=== PATIENT | male | born 1940 | race Caucasian/White ===

== ENCOUNTER → 2017-12-04 09:25 | Outpatient (CLI) | payer BC ==
[2017-12-04 10:15] LABS: BASOPHILS 0.6 % (0-2); HEMOGLOBIN 12.9 g/dL (13.5-17.5); IMMATURE GRANULOCYTES 0.3 % (0-5); MCH 27.5 pg (26.0-34.0); MCHC 31.5 g/dL (31.0-37.0); MCV 87.4 fL (80.0-100.0); MONOCYTES 8.8 % (2-11); NEUTROPHILS 70.3 % (40-80); PLATELET COUNT 231 10x3/uL (130-400); RBC 4.69 10x6/uL (4.20-6.10); RDW 17.6 % (11.5-14.5); WBC 10.2 10x3/uL (4.8-10.8)
[2017-12-04 10:20] LABS: ALBUMIN 3.4 g/dL (3.4-5.0); ANION GAP 15.3 mmol/L (8-16); BILIRUBIN - TOTAL 1.09 mg/dL (0.2-1.3); CARBON DIOXIDE 22.9 mmol/L (21.0-32.0); CHOL - HDL RATIO 3.2 ratio (2.3-4.9); LDL-HDL RATIO 1.7 ratio (1.5-3.5); POTASSIUM - SERUM 5.2 mmol/L (3.5-5.1); PROTEIN - SERUM 8.8 g/dL (6.4-8.2); THYROID STIMULATING HORMONE 2.58 uIU/mL (0.36-3.74); URIC ACID 5.4 mg/dL (2.6-7.2)
[2017-12-05 07:35] LABS: FOLATE (FOLIC ACID) - SERUM >20.0 ng/mL (>3.0)
== END | disposition home or self-care (01) ==
LOC: D.LAB 09:25
PROVIDERS: Family Medicine
DX: F10.20 Alcohol dependence, uncomplicated (principal); I10 Essential (primary) hypertension; K74.60 Unspecified cirrhosis of liver; M10.9 Gout, unspecified

== ENCOUNTER → 2018-05-29 14:02 | Outpatient (CLI) | payer BC | END | disposition home or self-care (01) | LOC: D.MRI 14:02 | DX: M54.16 Radiculopathy, lumbar region (principal) ==

== ENCOUNTER → 2019-04-21 08:54 | Outpatient (CLI) | payer BC ==
[2019-04-21 09:48] LABS: HEMATOCRIT 38.6 % (42.0-54.0); HEMOGLOBIN 12.3 g/dL (13.5-17.5); LYMPHOCYTES 18.4 % (15-50); MCH 26.3 pg (26.0-34.0); MCHC 31.9 g/dL (31.0-37.0); MCV 82.7 fL (80.0-100.0); MEAN PLATELET VOLUME 11.2 fL (7.4-10.4); NEUTROPHILS 71.3 % (40-80); RBC 4.67 10x6/uL (4.20-6.10); RDW 18.9 % (11.5-14.5)
[2019-04-21 09:50] LABS: INR 1.21 (0.85-1.17); PROTIME 14.8 SECONDS (11.6-15.0)
[2019-04-21 09:52] LABS: ALBUMIN 3.8 g/dL (3.4-5.0); ANION GAP 13.5 mmol/L (8-16); BILIRUBIN - DIRECT 0.19 mg/dL (0.00-0.30); CALCIUM 9.4 mg/dL (8.5-10.1); CARBON DIOXIDE 25.1 mmol/L (21.0-32.0); CREATININE - SERUM 1.7 mg/dL (0.6-1.3); PLATELET COUNT 151 10x3/uL (130-400); POTASSIUM - SERUM 4.6 mmol/L (3.5-5.1); PROTEIN - SERUM 8.6 g/dL (6.4-8.2)
[2019-04-21 10:10] LABS: BILIRUBIN - INDIRECT 0.54 mg/dL (0.00-1.00); BILIRUBIN - TOTAL 0.73 mg/dL (0.2-1.3)
[2019-04-22 09:14] LABS: ALPHA FETOPROTEIN -(TUMOR MRK) 1.9 ng/mL (0.0-8.3)
[2019-04-22 11:14] LABS: HEPATITIS C ANTIBODY <0.1 S/CO RAT (0.0-0.9)
== END | disposition home or self-care (01) ==
LOC: D.LAB 08:45 → D.US 10:00
PROVIDERS: ATTEND Internal Medicine Gastroenterology
DX: K70.30 Alcoholic cirrhosis of liver without ascites (principal)

== ENCOUNTER → 2019-10-19 09:08 | Outpatient (CLI) | payer BC ==
[2019-10-19 09:47] LABS: BASOPHILS 0.3 % (0-2); EOSINOPHILS 1.5 % (0-7); HEMATOCRIT 35.6 % (42.0-54.0); HEMOGLOBIN 10.8 g/dL (13.5-17.5); IMMATURE GRANULOCYTES 0.2 % (0-5); LYMPHOCYTES 23.3 % (15-50); MCH 24.7 pg (26.0-34.0); MCHC 30.3 g/dL (31.0-37.0); MCV 81.3 fL (80.0-100.0); MEAN PLATELET VOLUME 10.3 fL (7.4-10.4); MONOCYTES 6.9 % (2-11); NEUTROPHILS 67.8 % (40-80); PLATELET COUNT 172 10x3/uL (130-400); RBC 4.38 10x6/uL (4.20-6.10); RDW 17.3 % (11.5-14.5); WBC 9.1 10x3/uL (4.8-10.8)
[2019-10-19 09:48] LABS: INR 1.2 (0.85-1.17); PROTIME 14.7 SECONDS (11.6-15.0)
[2019-10-19 09:52] LABS: ALBUMIN 3.4 g/dL (3.4-5.0); ANION GAP 12.5 mmol/L (8-16); BILIRUBIN - DIRECT 0.19 mg/dL (0.00-0.30); BILIRUBIN - INDIRECT 0.45 mg/dL (0.00-1.00); BILIRUBIN - TOTAL 0.64 mg/dL (0.2-1.3); CALCIUM 8.8 mg/dL (8.5-10.1); CARBON DIOXIDE 23.9 mmol/L (21.0-32.0); CREATININE - SERUM 1.6 mg/dL (0.6-1.3); POTASSIUM - SERUM 4.4 mmol/L (3.5-5.1); PROTEIN - SERUM 7.9 g/dL (6.4-8.2)
== END | disposition home or self-care (01) ==
LOC: D.LAB 09:08 → D.US 09:30
PROVIDERS: ATTEND Internal Medicine Gastroenterology
DX: K70.30 Alcoholic cirrhosis of liver without ascites (principal)

== ENCOUNTER → 2020-01-01 10:32 | Outpatient (CLI) | payer BC ==
[2019-12-15 06:24] VITALS: BMI 31.0
[~2020-01-01 10:32] MED LIST: ALEVE220 MG PO; BAYER CHEWABLE81 MG PO; BRILINTA90 MG PO; COREG6.25 MG PO; FLEET; ISOSORBIDE MONO30 M1 PO; LIPITOR80 MG PO; OMEPRAZOLE20 M1 PO; POTASSIUM CHLO10 ME1 PO; SMZ-TMP DS TABL1 TAB PO; ZYLOPRIM100 MG PO
== END | disposition home or self-care (01) ==
LOC: D.NM 10:30 → D.CT 11:30 → D.NM 01-06 10:30
PROVIDERS: ATTEND Urology
DX: C61 Malignant neoplasm of prostate (principal)

== ENCOUNTER 2020-02-10 07:31 | Outpatient (CLI) | payer BC ==
[~2020-02-10] VITALS: Ht 167.6 cm; Wt 90.7 kg
[2020-02-10 08:13] LABS: BASOPHILS 0.7 % (0-2); EOSINOPHILS 2.5 % (0-7); HEMATOCRIT 37.4 % (42.0-54.0); HEMOGLOBIN 10.7 g/dL (13.5-17.5); IMMATURE GRANULOCYTES 0.1 % (0-5); LYMPHOCYTES 22.5 % (15-50); MCHC 28.6 g/dL (31.0-37.0); MCV 80.4 fL (80.0-100.0); MEAN PLATELET VOLUME 10.6 fL (7.4-10.4); MONOCYTES 8.2 % (2-11); PLATELET COUNT 148 10x3/uL (130-400); RBC 4.65 10x6/uL (4.20-6.10); RDW 21.2 % (11.5-14.5); WBC 7.7 10x3/uL (4.8-10.8)
[2020-02-10 08:45] LABS: INR 1.18 (0.85-1.17); PROTIME 14.9 SECONDS (11.6-15.0)
[2020-02-10 09:27] VITALS: BP 123/69; Ht 167.6 cm; Wt 90.7 kg
--- NOTE | 2020-02-10 13:22 | NUR ---
1318-REC'D FROM RR. AWAKE AND ALERT,VSS DENIES PAIN. REVIEWED DISCHARGE CRITERIA.VERBALIZED UNDERSTANDING. CL IN EASY REACH
--- NOTE | 2020-02-10 14:10 | NUR ---
1345-FULL LIQUID TRAY TO ROOM.1L/NC- VSS. MANN STRICKLAND.
--- NOTE | 2020-02-10 15:06 | NUR ---
1430-REMOVED IV WITH CATH INTACT,DISPOSED INTO SHARPS,COVERED WITH GUAZE,SECURED WITH MEDIPORE TAPE.
--- NOTE | 2020-02-10 15:06 | NUR ---
1440-REVIEWED POST OPERATIVE INSTRUCTIONS.VERBALIZED UNDERSTANDING. AWAITING ARRIVAL FOR TRANSPORT HOME
--- NOTE | 2020-02-10 15:07 | NUR ---
1505-ESCORTED OUT VIA W/C WITH SPOUSE AWAITING TO DRIVE HOME
== END 2020-02-10 15:05 | disposition home or self-care (01) ==
LOC: D.OPS 07:31
PROVIDERS: Anesthesiology; ATTEND Internal Medicine Pulmonary Disease
DX: R93.89 Abnormal findings on diagnostic imaging of other specified body structures (principal); I10 Essential (primary) hypertension; J44.9 Chronic obstructive pulmonary disease, unspecified; K21.9 Gastro-esophageal reflux disease without esophagitis; C61 Malignant neoplasm of prostate; E66.9 Obesity, unspecified; Z68.30 Body mass index [BMI] 30.0-30.9, adult; J43.9 Emphysema, unspecified; J98.09 Other diseases of bronchus, not elsewhere classified

== ENCOUNTER → 2020-02-12 07:42 | Outpatient (CLI) | payer BC ==
[2020-02-10 09:27] VITALS: BMI 32.3
== END | disposition home or self-care (01) ==
LOC: D.RT 07:42
PROVIDERS: ATTEND Internal Medicine Pulmonary Disease
DX: J43.9 Emphysema, unspecified (principal)

== ENCOUNTER → 2021-02-09 10:11 | Outpatient (CLI) | payer BC ==
[2020-02-10 09:27] VITALS: BMI 32.3
== END | disposition home or self-care (01) ==
LOC: D.LAB 10:11
PROVIDERS: ATTEND Otolaryngology
DX: Z11.52 Encounter for screening for COVID-19 (principal)

== ENCOUNTER → 2021-02-13 10:01 | Outpatient (CLI) | payer BC ==
[2020-02-10 09:27] VITALS: BMI 32.3
== END | disposition home or self-care (01) ==
LOC: D.RT 10:01
PROVIDERS: ATTEND Internal Medicine Pulmonary Disease
DX: Z11.52 Encounter for screening for COVID-19 (principal); J44.9 Chronic obstructive pulmonary disease, unspecified